=== PATIENT | male | born 2000 | race Caucasian/White ===

== ENCOUNTER 2022-04-27 09:58 | Day surgery (SDC) | payer OTHER ==
[2022-04-24 14:35] VITALS: BMI 30.7
[2022-04-27] MEDS ORDERED: MIDAZOLAM HCL 2 MG/2 ML SINGLE DOSE VIAL ONE (12:05)
[2022-04-27] MEDS ORDERED: BUPIVACAINE HCL/PF 0.5% (5 MG/ML) 30 ML VIAL IJ ONE (12:05)
[2022-04-27] MEDS ORDERED: BUPIVACAINE LIPOSOME/PF (EXPAREL) 266 MG/20 ML VIAL ONE ×2 (12:05→12:06)
[2022-04-27] MEDS ORDERED: FENTANYL CITRATE/PF 50 MCG/ML VIAL ONE (12:05)
[2022-04-27] MEDS ORDERED: ONDANSETRON 4 MG/2 ML VIAL IVPUSH PRN (12:33)
[2022-04-27] MEDS ORDERED: oxyCODONE HCL 5 MG TABLET PO PRN (12:33)
[2022-04-27] MEDS ORDERED: LACTATED RINGERS SOLUTION 1,000 ML IV SCH (12:45)
[2022-04-27] MEDS ORDERED: DEXAMETHASONE SOD PHOSPHATE 4 MG/1 ML VIAL ONE (12:53)
[2022-04-27] MEDS ORDERED: ceFAZolin SODIUM 1 GM VIAL ONE (12:53)
[2022-04-27] MEDS ORDERED: PROPOFOL 20 ML ONE ×3 (12:56→14:22)
[2022-04-27 16:56] VITALS: RESP 18
[2022-04-27 16:58] VITALS: BP 118/76; PULSE 62; TEMP 97.6
== END 2022-04-27 16:57 | disposition home or self-care (01) ==
LOC: FASU 09:58
PROVIDERS: ATTEND Orthopaedic Surgery Sports Medicine
PROC: 0RQJ4ZZ Repair Right Shoulder Joint, Percutaneous Endoscopic Approach (ICD-10-PCS; 2022-04-27)
PROC: 0RQJ4ZZ Repair Right Shoulder Joint, Percutaneous Endoscopic Approach (ICD-10-PCS; principal; 2022-04-27 13:22)
DX: S43.431A Superior glenoid labrum lesion of right shoulder, initial encounter (principal); S43.81XA Sprain of other specified parts of right shoulder girdle, initial encounter; X58.XXXA Exposure to other specified factors, initial encounter; Y93.9 Activity, unspecified; Y92.9 Unspecified place or not applicable
CPT/HCPCS: 94760; C1713